=== PATIENT | female | born 1995 | race African-American/Black ===

== ENCOUNTER 2020-12-09 23:29 | Emergency (ER) | payer OTHER ==
[2020-12-09 23:54] VITALS: BP 122/75; PULSE 86; TEMP 98.9; BMI 22.3
[2020-12-10] MEDS ORDERED: ACETAMINOPHEN 325 MG TABLET (FP) PO ONE (00:41)
[2020-12-10] MEDS ORDERED: ACETAMINOPHEN 325 MG TABLET (FP) ONE (00:45)
[2020-12-10 01:16] LABS: URINE APPEARANCE CLEAR; URINE BILIRUBIN NEGATIVE (NEGATIVE); URINE COLOR YELLOW; URINE GLUCOSE (UA) NEGATIVE (NEGATIVE); URINE KETONE NEGATIVE (NEGATIVE); URINE LEUK ESTERASE NEGATIVE (NEGATIVE); URINE NITRITE NEGATIVE (NEGATIVE); URINE PROTEIN NEGATIVE (NEGATIVE); URINE UROBILINOGEN 0.2 mg/dL (0.2-1.0)
[2020-12-10 01:18] LABS: HCG,QUALITATIVE URINE Negative
== END 2020-12-10 02:55 | disposition home or self-care (01) ==
LOC: JER 23:29
DX: R06.02 Shortness of breath (principal)
CPT/HCPCS: 71045-TC-FY; 81003; 84703; 99284-25; C9803; U0003; U0005